=== PATIENT | female | born 1960 | race Caucasian/White ===

== ENCOUNTER 2020-02-20 07:03 | Outpatient (REF) | payer BC, SELFPAY | END 2020-02-20 07:04 | disposition home or self-care (01) | LOC: HO.WFDLDS 07:03 | PROVIDERS: Visit Provider Internal Medicine | DX: Z20.828 Contact with and (suspected) exposure to other viral communicable diseases (principal) | CPT/HCPCS: C9803; U0003 ==

== ENCOUNTER 2020-03-05 07:18 | Outpatient (REF) | payer BC, SELFPAY | END 2020-03-05 07:19 | disposition home or self-care (01) | LOC: HO.WFDLDS 07:18 | PROVIDERS: Visit Provider Internal Medicine | DX: Z20.828 Contact with and (suspected) exposure to other viral communicable diseases (principal) | CPT/HCPCS: U0003 ==

== ENCOUNTER 2020-04-11 07:10 | Outpatient (REF) | payer BC, SELFPAY | END 2020-04-11 07:11 | disposition home or self-care (01) | LOC: HO.WFDLDS 07:10 | PROVIDERS: Visit Provider Internal Medicine | DX: Z20.828 Contact with and (suspected) exposure to other viral communicable diseases (principal) | CPT/HCPCS: 36415; C9803; U0003 ==

== ENCOUNTER 2021-08-09 15:08 | Outpatient (REF) | payer BC, SELFPAY ==
--- NOTE | ~2021-08-09 | MM_ITS ---
EXAMINATION: MM SCREENING DIGITAL BREAST TOMOSYNTHESIS, BILATERAL CLINICAL INFORMATION: Screening. Asymptomatic. The lifetime risk of breast cancer based on the Tyrer-Cuzick Model is 5b%. COMPARISON: Mammography: 11/22/2018, 05/27/2017, 01/12/2013 TECHNIQUE: Digital breast tomosynthesis is performed in both the craniocaudal and mediolateral oblique views along with computer-aided detection (CAD). Synthesized 2D images are generated from the tomosynthesis. FINDINGS: There are scattered areas of fibroglandular density (ACR BI-RADS breast composition Category b). There are no significant masses, abnormal calcifications, or other abnormalities. Parenchymal pattern is similar to prior studies. No developing density or interval mass or architectural abnormality. No significant changes. MM/MM tomosynthesis screening BI IMPRESSION: No mammographic evidence of malignancy. ASSESSMENT: BI-RADS 1: Negative RECOMMENDATION: Routine annual mammography screening. This patient's information was entered into a reminder system with a target due date for their next mammogram.
== END 2021-08-09 15:09 | disposition home or self-care (01) ==
LOC: HO.MAMMO 15:08
PROVIDERS: Visit Provider Internal Medicine
DX: Z12.31 Encounter for screening mammogram for malignant neoplasm of breast (principal)
CPT/HCPCS: 77063; 77067

== ENCOUNTER 2022-11-17 09:28 | Outpatient (REF) | payer BC, SELFPAY ==
--- NOTE | ~2022-11-17 | MM_ITS ---
EXAMINATION: MM SCREENING DIGITAL BREAST TOMOSYNTHESIS, BILATERAL CLINICAL INFORMATION: Screening. Asymptomatic. COMPARISON: Mammography: This study is compared with prior exams dating back to 2018. TECHNIQUE: Digital breast tomosynthesis is performed in both the craniocaudal and mediolateral oblique views along with computer-aided detection (CAD). Synthesized 2D images are generated from the tomosynthesis. FINDINGS: There are scattered areas of fibroglandular density (ACR BI-RADS breast composition Category b). In the upper outer quadrant of the left breast, the posterior fat glandular interface, there is an asymmetry for which additional mammographic evaluation is advised. Targeted sonography is at the discretion of the diagnostic radiologist. In the right breast, there are no significant masses, abnormal calcifications, or other abnormalities. MM/MM tomosynthesis screening BI IMPRESSION: Asymmetry of the left breast warrants additional mammographic imaging. Sonography may be performed at the discretion of the diagnostic radiologist. No mammographic signs of malignancy right breast. ASSESSMENT: BI-RADS BI-RADS 0 - Incomplete: Needs additional Imaging. RECOMMENDATION: 1. Additional views of the left breast 2. Targeted ultrasound if warranted after review of the additional views. 3. Radiology department staff will contact the patient for additional imaging. Additional Imaging required This examination should not preclude the clinical evaluation of a suspicious palpable abnormality. This patient's information was entered into a reminder system with a target due date for their next mammogram.
== END 2022-11-17 09:29 | disposition home or self-care (01) ==
LOC: HO.MAMMO 09:28
PROVIDERS: PCP Internal Medicine; Visit Provider Internal Medicine
DX: Z12.31 Encounter for screening mammogram for malignant neoplasm of breast (principal)
CPT/HCPCS: 77063; 77067

== ENCOUNTER → 2022-11-17 09:30 | Outpatient (BNV) | payer BC, SELFPAY | PROVIDERS: PCP Internal Medicine; Visit Provider Radiology Diagnostic Radiology | DX: Z12.31 Encounter for screening mammogram for malignant neoplasm of breast (principal) | CPT/HCPCS: 77063; 77067 ==

== ENCOUNTER 2022-12-31 13:24 | Outpatient (REF) | payer BC, SELFPAY ==
--- NOTE | ~2022-12-31 | MM_ITS ---
EXAMINATION: MM DIAGNOSTIC DIGITAL BREAST TOMOSYNTHESIS, LEFT US BREAST LIMITED, LEFT MAMMOGRAPHY: CLINICAL INFORMATION: Diagnostic for possible area of architectural distortion seen in one view, medial left CC view only. No definite correlate on the corresponding MLO view. COMPARISON: Mammography: Screening mammography 11/17/2022. Dating back to 2012. TECHNIQUE: Digital left breast tomosynthesis is performed in left full-field 3-D digital ML view, as well as 3-D spot compression CC views x2, along with computer-aided detection (CAD). Synthesized 2D images are generated from the tomosynthesis. FINDINGS: There are scattered areas of fibroglandular density (ACR BI-RADS breast composition Category b). Diagnostic views demonstrate no persistent abnormality or area of architectural distortion. Finding is consistent with overlap of normal fibroglandular elements/summation artifact. No persistent findings suspicious for malignancy. ULTRASOUND: CLINICAL INFORMATION: Possible area of architectural area of distortion left CC view as above. COMPARISON: None TECHNIQUE: Targeted sonographic evaluation was performed left breast using a high frequency linear transducer, with specific attention to the upper medial quadrant of the left breast.. Selected archived documentation. FINDINGS: LEFT BREAST: There is a mixture of fatty and fibroglandular tissue. No suspicious mass is seen. There is no pathologic acoustic shadowing. There is no cystic abnormality. There is no sonographic correlate to the finding in the left breast on mammography. MM/MM tomosynthesis diagnostic LT IMPRESSION: There are no persistent findings suspicious for malignancy. Recommend the patient resume routine annual screening mammography in 6 months. OVERALL ASSESSMENT: Mammography: BI-RADS 1 - Negative Ultrasound: BI-RADS 1 - Negative RECOMMENDATION: 1 year F/U Results were provided to the patient at time of visit by the technologist. This patient's information was entered into a reminder system with a target due date for their next mammogram.
== END 2022-12-31 13:25 | disposition home or self-care (01) ==
LOC: HO.MAMMO 13:24
PROVIDERS: PCP Internal Medicine; Visit Provider Internal Medicine
DX: N64.89 Other specified disorders of breast (principal)
CPT/HCPCS: 76642; 77061; 77065

== ENCOUNTER 2024-10-11 12:45 | Outpatient (REF) | payer BC, SELFPAY ==
--- OUTSIDE RECORDS SUMMARY | 2024-10-11 13:28 | XMS_ITS | Patient Health Record ---
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 Phone Kenyon Fontenot MD Primary Care Provider Rashawn Jeffery [phone] Allergies Allergen (clinical drug ingredient) Drug/Non Drug Allergy documented on EMR Reaction Allergy Type Onset Date Status Sulfa Unknown Drug Allergy Active aspirin Aspirin Unknown Drug Allergy Active Reason For Referral No Information Medications Medication SIG (Take, Route, Frequency, Duration) Notes Start Date End Date Status Suprep Bowel Prep 1 kit as directed Oral ly as directed for 1 dose 01/19/2013 Active Metoprolol & Diet Manage Prod 75mg Active Doxycycline Hyclate 20mg Active MetroCream Active Problems Problem Type SNOMED Code ICD Code Onset Dates Problem Status W/U Status Risk Notes Problem Right upper quadrant pain (133438438) Abdominal pain, right upper quadrant (789.01) Active confirmed Problem Colon cancer screening (756446899) Colon cancer screening (V76.51) Active confirmed Problem Gastroesophageal reflux disease (123569114) GERD (gastroesophag eal reflux disease) (530.81) Active confirmed Problem History of adenomatous polyp of colon (233414154) History of adenomatous polyp of colon (V12.72) Active confirmed Plan Of Treatment Future Test Test Name Order Date COLONOSCOPY 01/19/2013 Insurance Providers Payer Name Payer Address Payer Phone Subscriber Number Group Number Insured Name Patient Relationship to Insured Coverage Start Date Coverage End Date [facility] [address] [place] [address] [id number] [address]ARKER Self - patient is the insured Medical (General) History Medical History History ICD Code IBS colon polyps-tubular adenomas removed in 2003 and 09/2007 GERD-EGD in 2003-small HH, n o esophagitis nor Gurrola's esophagus--Nexium caused GI upset hypertension acne rosacea Denies LA,DM,CVA,Lung disease,renal dise ase
--- OUTSIDE RECORDS SUMMARY | 2024-10-11 13:28 | XMS_ITS | Clinical Summary ---
Author Organization [facility] Address [address] [place] [id number] Phone Care Team Providers Care Senior Construction Estimator Name Role Phone Kenyon Fontenot MD Primary Care Provider [phone] Medical History Medical History Date Comments HTN (hypertension) 08/01/2021 DX:HTN (hyper tension) Rosacea 08/01/2021 DX:Rosacea History of tobacco use 08/01/2021 DX:Histor y of tobacco use; COMMENT: Scheduled for lung cancer screening October 2021. Family History Medical History Relation Name Comments Lung cancer Father Relation Name Status Comments Father Social History Tobacco Use Types Packs/Day Years Used Date Smoking Tobacco: Every Day Cigarettes 1 50.5 Started: 04/06/1974 Comments Unknown Sex and Gender Information Value Date Recorded Sex Assigned at Not on file Legal Sex Female 1:21 PM EST Gender Identity Not on file Sexual Orientation Not on file Obstetrics History Last Filed Vital Signs Vital Sign Reading Time Taken Comments Blood Pressure - - Pulse - - Temperature - - Respiratory Rate - - Oxygen Saturation - - Inhaled Oxygen Concentration - - Weight 65.3 kg (144 lb) 10/15/2021 9:58 AM EDT Height 160 cm (5' 3 ) 10/15/2021 9:58 AM EDT Body Mass Index 25.51 10/15/2021 9:58 AM EDT Plan of Treatment Health Maintenance Due Date Last Done Comments Breast Cancer Screening 1960 COVID-19 Vaccine (#1) 1965 DTaP,Tdap,and Td Vaccines (1 - Tdap) 1979 Pneumococcal Vaccine: 50+ Years (1 of 2 - PCV) 1979 Pneumococcal Vaccine: Pediatrics (0 to 5 Years) and At-Risk Patients (6 to 49 Years) (1 of 2 - PCV) 1979 Zoster Vaccines (1 of 2) 1979 Cervical Cancer Screening: Pap Smear 1981 Colorectal Cancer Screening: Colonoscopy 03/04/2022 Depression Screening 03/04/2022 HIV Screening 03/04/2022 Hepatitis C Screening 03/04/2022 Social Influencers of Health Screening 03/04/2022 Influenza Vaccine (#1) 2024 , 12/30/2020, 01/24/2019, Additional history exists Lung Cancer Screening (Low Dose CT) 03/01/2025 03/01/2024, 03/05/2023, 10/15/2021 Hypertension/CHF/CAD Annual BMP Blood Test 10/04/2025 10/04/2024, 09/28/2024, 09/21/2024, Additional history exists Cholesterol Screening (Lipid Panel) 08/25/2029 08/25/2024, 07/12/2024, 07/04/2024, Additional history exists RSV Immunization Adult Patients (1 - 1-dose 75+ series) 2035 HIB Vaccines Aged Out No longer eligi ble based on patient's age to complete this topic HPV Vaccines Aged Out No longer eligi ble based on patient's age to complete this topic Hepatitis A Vaccines Aged Out No long er eligible based on patient's age to complete this topic Hepatitis B Vaccines Aged Out No long er eligible based on patient's age to complete this topic IPV Vaccines Aged Out No longer eligi ble based on patient's age to complete this topic MMR Vaccines Aged Out No longer eligi ble based on patient's age to complete this topic Meningococcal ACWY Vaccine Aged Out N o longer eligible based on patient's age to complete this topic Meningococcal B Vaccine Aged Out No l onger eligible based on patient's age to complete this topic RSV Immunization Patients Under 20 months Aged Out No longer eligible based on patient's age to complete this topic Varicella Vaccines Aged Out No longer eligible based on patient's age to complete this topic Procedures Procedure Name Priority Date/Time Associated Diagnosis Comments CT LUNG SCREENING Routine 03/01/2024 11: 16 AM EST Nicotine dependence, cigarettes, uncomplicated from Last 3 Months or Most Recently Relevant to Health Maintenance Results * CT Lung Screening (03/01/2024 11:16 AM EST) Anatomical Region Laterality Modality Chest Computed Tomogra phy 03/01/2024 3:30 PM EST Impressions 03/01/2024 3:50 PM EST Lung RADS 2. Guidelines recommend repeat low-dose screening CT in 12 months. -------- FINAL REPORT -------- Dictated By: Jamie Matos Dictated Date: 03/01/2024 15:30 ET Assigned Physician: Jamie Matos Reviewed and Electronically Signed By: Jamie Matos Signed Date: 03/01/2024 15:50 ET Workstation ID: [id number] Transcribed By: Self Edit Transcribed Date: 03/01/2024 15:30 ET Narrative 03/01/2024 3:[address], 03/01/2024 3:30 PM. TECHNIQUE: Low-dose CT of the chest without intravenous contrast administration. Coronal and sagittal reformats and MIP reconstructions were created. Dose length product: 98 mGy-cm. HISTORY: Lung cancer screening, >=20 pk yr current smoker (Age 50-80y) COMPARISON: 02/28/2023. FINDINGS: Lungs/pleura: The central airways are clear and normal in caliber. No endobronchial nodule. Mild centrilobular emphysema. Stable scattered small pulmonary nodules. The largest is a 4 mm nodule in the periphery of the left lower lobe, series 3 image 169. No pleural effusion. No pneumothorax. Mediastinum/aracely: No mediastinal mass or lymphadenopathy. No appreciable hilar lymphadenopathy on limited noncontrast evaluation. Vasculature: Mild atherosclerotic calcifications of the aorta. Normal caliber pulmonary arteries. Cardiac: Normal heart size. No significant coronary artery calcification. Chest wall: No mass or lymphadenopathy. Limited abdomen: Cholecystectomy. Bones: Mild degenerative changes of the shoulders and spine. Procedure Note Jamie Matos MD - 03/01/[address], 03/01/2024 3:30 PM. TECHNIQUE: Low-dose CT of the chest without intravenous contrastadministration. Coronal and sagittal reformats and MIP reconstructionswere created. Dose length product: 98 mGy-cm. HISTORY: Lung cancer screening, >=20 pk yr current smoker (Age 50-80y) COMPARISON: 02/28/2023. FINDINGS: Lungs/pleura: The central airways are clear and normal in caliber. Noendobronchial nodule. Mild centrilobular emphysema. Stable scatteredsmall pulmonary nodules. The largest is a 4 mm nodule in the periphery ofthe left lower lobe, series 3 image 169. No pleural effusion. Nopneumothorax. Mediastinum/aracely: No mediastinal mass or lymphadenopathy. No appreciablehilar lymphadenopathy on limited noncontrast evaluation. Vasculature: Mild atherosclerotic calcifications of the aorta. Normalcaliber pulmonary arteries. Cardiac: Normal heart size. No significant coronary arterycalcification. Chest wall: No mass or lymphadenopathy. Limited abdomen: Cholecystectomy. Bones: Mild degenerative changes of the shoulders and spine. IMPRESSION: Lung RADS 2. Guidelines recommend repeat low-dose screening CT in 12months. -------- FINAL REPORT -------- Dictated By: Jamie Matos Dictated Date: 03/01/2024 15:30 ET Assigned Physician: Jamie Matos Reviewed and Electronically Signed By: Jamie Matos Signed Date: 03/01/2024 15:50 ET Workstation ID: [id number] Transcribed By: Self Edit Transcribed Date: 03/01/2024 15:30 ET Vivi Miguel MD [facility] [place] CT PROCEDURES Final Result from Last 3 Months or Most Recently Relevant to Health Maintenance Insurance [facility] Care Teams Senior Construction Estimator Relationship Specialty Start Date End Date Kenyon Fontenot MD [address] [place] [id number] PCP - General 08/19/17
== END 2024-10-11 12:46 | disposition home or self-care (01) ==
LOC: HO.MAMMO 12:45
PROVIDERS: PCP Internal Medicine; Visit Provider Internal Medicine
DX: Z12.31 Encounter for screening mammogram for malignant neoplasm of breast (principal)
CPT/HCPCS: 77063; 77067

== ENCOUNTER → 2024-10-11 12:45 | Outpatient (BNV) | payer BC, SELFPAY | PROVIDERS: PCP Internal Medicine; Visit Provider Internal Medicine | DX: Z12.31 Encounter for screening mammogram for malignant neoplasm of breast (principal) | CPT/HCPCS: 77063; 77067 ==